=== PATIENT | female | born 1985 | race African-American/Black ===

== ENCOUNTER 2019-10-01 21:24 | Emergency (ER) | payer MEDICAID ==
[~2019-10-01] VITALS: Ht 152.4 cm; Wt 45.4 kg
[~2019-10-01 21:24] MED LIST: ACE3T PO; ALBUAER3 IN; Humalog SC; INSUPOW; LABE200T18 PO; MET10T PO; METO5TAB67 PO; PREN-129 OR; PROMCRY PO; lantus SC
[2019-10-01 22:27] LABS: Basophils # (auto) 0 10 ^3/uL (0-0.2); Basophils % (auto) 0.2 % (0.0-2.0); Eosinophils # (auto) 0 10 ^3/uL (0-0.8); Hemoglobin 8.4 g/dL (12.2-16.2); Mean Corpuscular Hemoglobin 18.9 pg (28.0-32.0); Monocytes # (auto) 0.5 10 ^3/uL (0-1.3); Nucleated Red Blood Cells % 0.1 %
[2019-10-01 22:32] LABS: Eosinophils % (auto) 0.1 % (0.0-7.0); Hematocrit 27.3 % (36.0-46.0); Lymphocytes # (auto) 1.3 10 ^3/uL (0.4-5.4); Lymphocytes % (auto) 26.4 % (10.0-50.0); Mean Corpuscular Hgb Conc. 30.9 g/dL (32.0-36.0); Monocytes % (auto) 10.2 % (0.0-12.0); Neutrophils # (auto) 3.1 10 ^3/uL (1.6-8.6); Neutrophils % (auto) 63.1 % (37.0-80.0); Platelet Count (auto) 316 10^3/uL (140-450); Red Blood Cells 4.47 10^6/uL (4.0-5.20); White Blood Cell 4.9 10^3/uL (4.4-10.8)
[2019-10-01 22:41] LABS: Albumin 1.5 g/dL (3.4-5.0); Anion Gap 9 (5-15); Blood Urea Nitrogen 14 mg/dL (7-18); Calcium 6.8 mg/dL (8.5-10.1); Carbon Dioxide 20 mmol/L (21-32); Chloride 109 mmol/L (98-107); Glucose 77 mg/dL (74-106); Potassium 3.3 mmol/L (3.5-5.1); Red Cell Distribution Width 26.6 % (11.8-14.3); Sodium 138 mmol/L (136-145)
[2019-10-01 22:49] LABS: Alanine Aminotransferase 12 U/L (13-56); Alkaline Phosphatase 93 U/L (45-117); Amylase 117 U/L (25-115); Aspartate Aminotransferase 12 U/L (15-37); BUN/Creatinine Ratio 17.5; Bilirubin, Total 0.5 mg/dL (0.2-1.0); GFR African American 106 mL/min; GFR Non-African American 87 mL/min; Lipase 418 U/L (73-393); Total Protein 5.2 g/dL (6.4-8.2)
[2019-10-01] MEDS ORDERED: ONDANSETRON HCL 4 MG/2 ML VIAL IV ONE (23:15)
[2019-10-01] MEDS ORDERED: MORPHINE SULFATE 4 MG/ML SYR/VIAL IV ONE (23:15)
[2019-10-01] MEDS ORDERED: cefTRIAXone 1GM/50ML D5W 50 ML IV ONE (23:15)
[2019-10-01] MEDS ORDERED: VANCOMYCIN 1GM/250ML 250 ML IV ONE (23:15)
[2019-10-01] MEDS ORDERED: SODIUM CHLORIDE 0.9% 1,000 ML IV ONE (23:15)
[2019-10-01] MEDS ORDERED: NOREPINEPHRINE 8 MG/250ML KIT 250 ML IV ONE (23:36)
[2019-10-01 23:39] LABS: INR 1.07 (0.9-1.15); Partial Thromboplastin Time 30.3 sec (23.0-31.2)
[2019-10-01 23:55] LABS: Lactic Acid w/Reflex 6.4 mmol/L (0.4-2.0)
[2019-10-02] MEDS ORDERED: metroNIDAZOLE 500MG/100ML 100 ML IV ONE
[2019-10-02] MEDS ORDERED: NOREPINEPHRINE 8 MG/250ML KIT 250 ML IV SCH (00:15)
[2019-10-02] MEDS ORDERED: SODIUM CHLORIDE 0.9% 2,000 ML IV ONE (00:30)
[2019-10-02] MEDS ORDERED: SODIUM CHLORIDE 0.9% 1,000 ML IV ONE (00:30)
[2019-10-02 00:34] VITALS: BP 93/61
[2019-10-02 00:53] LABS: Urine Amorphous Crystal MOD /hpf (None Seen); Urine Bacteria MOD /hpf (None Seen); Urine Blood 1+ /uL (Negative); Urine Hyaline Cast MANY /lpf (0 - 2); Urine Mucus MODERATE (None Seen); Urine Specific Gravity 1.023 (1.001-1.035); Urine WBC 58 /hpf (0 - 5); Urine WBC Clumps PRESENT /hpf (None Seen)
== END 2019-10-02 01:03 | disposition short-term general hospital (02) ==
LOC: EDBD 21:24 → ER 21:24
DX: K65.1 Peritoneal abscess (principal); I95.0 Idiopathic hypotension; K85.90 Acute pancreatitis without necrosis or infection, unspecified; K80.20 Calculus of gallbladder without cholecystitis without obstruction; D64.9 Anemia, unspecified; Z98.84 Bariatric surgery status; Z86.2 Personal history of diseases of the blood and blood-forming organs and certain disorders involving the immune mechanism; Z79.899 Other long term (current) drug therapy; Z88.0 Allergy status to penicillin
CPT/HCPCS: 36415; 36430; 36600; 71045; 74176; 80053; 81001; 82150; 82805; 83605; 83690; 84484; 85025; 85610; 85730; 86850; 86900; 86901; 86920; 87040; 93005; 96365; 96366; 96368; 96375; 99285; J0696; J2270; J2405; J3370; J3490; J7030; P9016